=== PATIENT | female | born 2000 | race Two or more races ===

== ENCOUNTER 2024-03-30 18:33 | Emergency (ER) | payer OTHER, SELFPAY ==
[2024-03-30 19:36] VITALS: BP 117/82; PULSE 85; RESP 16; TEMP 37; O2SAT 98; BMI 29.6
--- NOTE | 2024-03-30 19:44 | XR_ITS ---
Examination: Complete OB ultrasound, less than 14 weeks, transabdominal Date and time of exam: March 30, 20242010 hrs. Indications: Pelvic cramping beginning one month ago Technique: Obstetrical ultrasound images less than 14 weeks performed via transabdominal imaging Findings: Uterus 7.8 cm no uterine mass or intrauterine gestation Endometrial stripe 0.4 cm Right ovary 3.0 cm arterial flow Left ovary 3.1 cm arterial flow Impression: Negative examination
--- NOTE | 2024-03-30 19:44 | PD.EDRME ---
Rapid Medical Screening Exam RME Arrival date/time: 03/30/24 18:33 23-year-old female no significant past medical history and approximately 2 months late in her menstrual cycle presents emergency department complaining of vaginal spotting and abdominal cramping. Chief Complaint: OB/Uterine Contractions Time Seen by Provider: 03/30/24 18:55 Vital signs: Vital Signs Temperature 98.6 F 03/30/24 19:36 Pulse Rate 85 03/30/24 19:36 Respiratory Rate 16 03/30/24 19:36 Blood Pressure 117/82 03/30/24 19:36 Pulse Oximetry (%) 98 03/30/24 19:36 Oxygen Delivery Method Room Air 03/30/24 19:36 Vital signs reviewed by provider: Yes
[2024-03-30 20:22] LABS: Collection Type, Urine Clean Catch
[2024-03-30 20:37] LABS: Basophils # (Auto) 0.1 Thou/mm3 (0.0-0.2); Basophils % (Auto) 1 % (0-2.5); Eosinophils # (Auto) 0.1 Thou/mm3 (0.0-0.5); Eosinophils % (Auto) 1 % (0-10); Hematocrit 40.9 % (36.0-46.0); Hemoglobin 13.9 g/dL (12.0-16.0); Immature Granulocytes % (Auto) 0 % (0-0); Immature Granulocytes Auto 0.03 Thou/mm3 (0.00-0.00); Lymphocytes # (Auto) 3.3 Thou/mm3 (1.0-4.8); Lymphocytes % (Auto) 34 % (10-50); Mean Corpuscular Hemoglobin 29.4 pg (25.0-35.0); Mean Corpuscular Volume 87 fL (80-100); Monocytes # (Auto) 0.7 Thou/mm3 (0.0-0.8); Monocytes % (Auto) 7 % (0-12); Neutrophils # (Auto) 5.7 Thou/mm3 (1.8-7.7); Neutrophils % (Auto) 58 % (37-80); Nucleated Red Blood Cell % 0 /100 WBC (0); Platelet Count 236 Thou/mm3 (140-440); RDW Standard Deviation 38.4 fL (36.4-46.3); Red Blood Count 4.72 Miln/mm3 (4.00-5.20); White Blood Count 9.8 Thou/mm3 (3.6-11.0)
[2024-03-30 20:41] LABS: Bilirubin,Urine Negative (Negative); Blood,Urine Negative (Negative); Clarity,Urine Clear (Clear/Hazy); Color,Urine Lt-Yellow (Lt Yel-Yel); Culture Indicated,Urine Not Indicated; Glucose, Urine Negative (Negative); Ketones,Urine Negative (Negative); Leukocyte Esterase,Urine Negative (Negative); Nitrite,Urine Negative (Negative); Protein,Urine Negative (Neg - Trace); RBC,Urine 1 /hpf (0-3); Specific Gravity,Urine 1.024 (1.001-1.035); Squamous Epithelial Cell,Urine 4 /hpf (0-5); Urobilinogen,Urine Negative mg/dL (0.0-1.0); WBC,Urine 1 /hpf (0-5)
[2024-03-30 20:49] LABS: Alanine Aminotransferase 176 U/L (10-49); Albumin, Serum 4.8 gm/dL (3.5-5.0); Albumin/Globulin Ratio 1.4 (1.2-2.2); Alkaline Phosphatase 110 U/L (46-116); Anion Gap 9 (7-16); Aspartate Amino Transferase 95 U/L (0-34); BUN/Creatinine Ratio 10 Ratio (12-20); Beta HCG,Quantitative < 1 mIU/mL (<5.0); Bilirubin,Total 0.4 mg/dL (0.3-1.2); Blood Urea Nitrogen 7 mg/dL (9-23); Calcium 10.1 mg/dL (8.3-10.6); Calcium (Corrected) 10.1 mg/dL (8.5-10.1); Carbon Dioxide 25.3 mMol/L (20.0-31.0); Chloride 105 mMol/L (98-107); Creatinine (Component) 0.7 mg/dL (0.6-1.3); Estimated Creatinine Clearance 132.3 mL/min (>60); Globulin 3.5 gm/dL (2.3-3.5); Glucose 82 mg/dL (74-106); Osmolality,Calculated 274 (275-295); Potassium 4.2 mMol/L (3.4-5.1); Sodium 139 mMol/L (136-145); Total Protein 8.3 gm/dL (5.7-8.2); eGFR > 60 See Note
[2024-03-30 21:19] VITALS: BP 122/85; PULSE 85; RESP 18; TEMP 37; O2SAT 98
--- NOTE | 2024-03-30 21:26 | EDNOTE_ITS ---
<Statement entered by Marisa Garcia MD - 03/31/24 05:26> As co-signing physician, I was present and available for consult prn. I concur with the plan and care as documented by the midlevel provider. ED Abdominal Pain RME/HPI General Chief Complaint: OB/Uterine Contractions Stated complaint: CHECK FOR ; TWO MONTHS LATE Time seen by provider: 03/30/24 18:55 Arrival date/time: 03/30/24 18:33 23-year-old female no significant past medical history and approximately 2 months late in her menstrual cycle presents emergency department complaining of vaginal spotting and abdominal cramping. Patient denies any fever, chills, vomiting, dysuria, or any other associated symptom. Patient does report was normally on control and stopped taking this controlled medication back in December. Source: patient Mode of arrival: ambulatory Limitations: no limitations RME / HPI RME / HPI narrative: 03/30/24 18:33 23-year-old female no significant past medical history and approximately 2 months late in her menstrual cycle presents emergency department complaining of vaginal spotting and abdominal cramping. Related Data Previous Rx's ?Medication ?Instructions ?Recorded pantoprazole 40 mg tablet,delayed 40 mg PO QDAY #20 ta bs 11/03/22 release (Protonix) Allergies Allergy/AdvReac Type Severity Reaction Status Date / Time latex Allergy Mild RASH Verified 03/30/24 18:35 Review of Systems Review of Systems Systems Reviewed: All systems reviewed, normal except as documented Constitutional Constitutional: Reports system reviewed and no additional complaints, except as documented, Denies body ache(s), Denies chills and Denies fever(s) Eyes Eyes: Reports system reviewed and no additional complaints, except as documented and Denies change in vision ENT Ears, Nose, Mouth, and Throat: Reports system reviewed and no additional complaints, except as documented, Denies disequilibrium, Denies dizziness, Denies sore throat and Denies vertigo Cardiovascular Cardiovascular: Reports system reviewed and no additional complaints, except as documented, Denies chest pain and Denies dyspnea Respiratory Respiratory: Reports system reviewed and no additional complaints, except as documented, Denies chest congestion, Denies cough and Denies dyspnea Gastrointestinal Gastrointestinal: Reports system reviewed and no additional complaints, except as documented, Reports abdominal pain, Denies nausea and Denies vomiting Genitourinary Genitourinary: Reports abnormal vaginal bleeding and Reports other (Amenorrhea) Musculoskeletal Musculoskeletal: Reports system reviewed and no additional complaints, except as documented, Denies abnormal gait and Denies arthralgias Integumentary/Breasts Skin/Breast: Reports system reviewed and no additional complaints, except as documented, Denies erythema, Denies rash and Denies wounds Neurologic Neurologic: Reports system reviewed and no additional complaints, except as documented, Denies abnormal gait, Denies disequilibrium, Denies dizziness and Denies vertigo Past Medical History Social History SMOKING STATUS: Never smoker ED Exam General Limitations: Present no limitations General appearance: Present alert and in no apparent distress Head Head exam: Present atraumatic Eye Eye exam: Present normal appearance, PERRL and EOMI ENT ENT exam: Present normal exam, normal oropharynx and mucous membranes moist Neck Neck exam: Present normal inspection, full ROM and trachea midline Chest Chest inspection: Present normal inspection and symmetric chest wall rise Respiratory Respiratory exam: Present normal lung sounds bilaterally Cardiovascular Cardiovascular exam: Present regular rate, normal rhythm and normal heart sounds Abdominal Exam Abdominal exam: Present soft and normal bowel sounds Extremities Exam Extremities exam: Present normal inspection and full ROM Back Exam Back exam: Present normal inspection and full ROM Neurological Exam Neurological exam: Present alert, oriented X3 and CN II-XII intact Psychiatric Psychiatric exam: Present normal affect and normal mood Skin Skin exam: Present warm, dry, intact and normal color Course Quality Measures none Orders Category Date Time Status US OB <= 14 weeks fetus Stat Exams 03/30/24 19:44 Completed ABO/RH Type Stat Lab 03/30/24 19:56 Completed Beta HCG,Quantitative Stat Lab 03/30/24 19:56 Completed CBC Stat Lab 03/30/24 19:56 Completed CMP [Comprehensive Metabolic Panel] Stat Lab 03/30/24 19:56 Completed Urinalysis, C/S if Indicated Stat Lab 03/30/24 20:00 Completed Vital Signs Vital signs: Vital Signs Temperature 98.6 F 03/30/24 19:36 Pulse Rate 85 03/30/24 19:36 Respiratory Rate 16 03/30/24 19:36 Blood Pressure 117/82 03/30/24 19:36 Pulse Oximetry (%) 98 03/30/24 19:36 Oxygen Delivery Method Room Air 03/30/24 19:36 98% room air within normal limits Abdominal Pain MDM MDM Narrative MDM Narrative:: 23-year-old female no significant past medical history and approximately 2 months late in her menstrual cycle presents emergency department complaining of vaginal spotting and abdominal cramping. Patient denies any fever, chills, vomiting, dysuria, or any other associated symptom. Patient does report was normally on control and stopped taking this controlled medication back in December. CBC was unremarkable for any leukocytosis or anemia. CMP was unremarkable other than mild elevated AST and ALT. Patient is abdomen is soft and nontender. Urinalysis was unremarkable. Ultrasound was also unremarkable. Patient appears nontoxic and is hemodynamically stable. Patient stable for discharge instructed to follow-up with primary care provider return to emergency department for any worsening symptoms or as needed. Patient data External records reviewed:: [facility] previous records Clinical information provided by:: patient Social determinants that could affect healthcare access:: none Patient has the following chronic illnesses:: None How is presenting disease/condition affected by chronic disease/condition?: no chronic disease Evaluation data The following diagnostics were reviewed and interpreted by me:: lab results and radiology exam(s) Lab and/or radiology exams considered but not ordered:: Ordered Interpretation Summary: Interpreted by me Medications / Prescriptions Medications or Prescriptions considered but not ordered:: N/A Medication administrations:: N/A Consultations Consultation(s) initiated? (list below): No Diagnosis Differential diagnosis abdominal pain: abdominal pain, acute appendicitis, calculus of kidney, constipation, diverticulitis, endometriosis, gastroenteritis, pancreatitis and small bowel obstruction Most likely diagnosis given after review of the tests above:: Abdominal pain Admission Indicated Admission indicated?: not indicated Admission Request Was there a request for admission?: No Disposition Plan Disposition Plan: Discharge Discharge Attestation Discharge Attestation: The patient and all family members were given an opportunity to ask questions and understood the discharge instructions. Discharge instructions specifically effects, indications for sooner follow up or return to the emergency department, and the expected course of current diagnosis. Patient condition: Stable Discharge Plan Plan Patient Disposition: HOME (Self Care) Disposition Comment: Stable Prescriptions/Referrals Prescriptions/Med Rec: No Action pantoprazole [Protonix] 40 mg tablet,delayed release (DR/EC) 40 mg PO QDAY Qty: 20 0RF Referrals: No Primary/Family,Physician [Primary Care Provider] - In 1 week Problem List Clinical Impression: Abdominal pain Patient/Caregiver Discharge Instructions Discharge Activity: activity as tolerated Education Materials: Abdominal Pain, ED Abdominal Pain Unkn Cause Fem Additional Instructions: Take Tylenol or ibuprofen as needed for pain. Including fluids and stay hydrated. Follow-up with primary care provider and request referral to express clerk as symptoms persist. Return to emergency department for any worsening symptoms or as needed. Print Language: Uruguayan Stand Alone Forms: [employer] Award Info., Patient Portal Info Letter PA/EXCAVATING SUPERVISOR Supervising Physician PA/EXCAVATING SUPERVISOR Supervising Physician: Dr. Garcia
== END 2024-03-30 21:31 | disposition home or self-care (01) ==
PROVIDERS: Emergency Provider Emergency Medicine
DX: R10.9 Unspecified abdominal pain (principal); R74.01 Elevation of levels of liver transaminase levels
CPT/HCPCS: 36415; 76801; 80053; 81001; 84702; 85025; 86900; 86901; 99284

== ENCOUNTER 2024-07-08 13:33 | Outpatient (AMB) | payer OTHER, SELFPAY ==
[2024-07-08 14:08] VITALS: BP 121/75; PULSE 81; RESP 18; TEMP 36.2; O2SAT 98; BMI 30.4
--- NOTE | 2024-07-08 14:08 | GYNCLNT_ITS ---
Vital Signs 07/08/24 14:08 Height 1.65 m Height Method Stated Weight 83.064 kg Weight Measurement Method Standing Scale BMI 30.4 BP 121/75 Blood Pressure Source Automatic Cuff Blood Pressure Location Left Upper Arm Position Sitting Respiration 18 Pulse 81 Pulse Source Monitor Temp 97.2 F Temp Source Oral Pulse Oximetry (%) 98 Oxygen Delivery Method Room Air Allergies/Home Meds Allergies & Medications Allergies latex Allergy (Mild, Verified 07/08/24 14:09) RASH Medication Reconciliation pantoprazole 40 mg tablet,delayed release (Protonix) 40 mg PO QDAY #20 tabs 11/03/22 [Rx Confirmed 07/08/24] drospirenone 3 mg-ethinyl estradiol 0.02 mg tablet (NEGRO (28)) 1 tab PO QDAY 84 days #84 tabs 07/08/24 [Rx] metformin 500 mg tablet 500 mg PO QDAY 90 days #90 tabs 07/08/24 [Rx] Intake Visit Data Collection New Patient or Established: Established Patient (seen at [facility] within 3 years) Reason for Visit:: PCOS Seen by Clinical Staff ONLY (RN/MA): No Systems Software Designer Required: No Do You Feel Safe at Home: Yes Authorities Contacted: N/A PCP or OBGYN visit in last 3 months: Yes Hx Now: No Are you currently on any form of Control: No Last menstrual period: 01/29/24 Pain Present Currently: No Pain Scale Used: Alcantara-Vargas/Numerical Pain scale:: 0 Smoking Status Smoking Status: Never smoker Hospital Secretary history Hospital Secretary History Menstrual regularity: irregular Flow: light Monthly: No How many days does period last: 5 Age at menarche: 13 Menopausal: No Currently sexually active: No Questionnaires Covid-19 Vaccine Questionnaire Has patient been vacinated for Covid-19 Have you been vacinated for Covid-19: Yes PHQ-9 PHQ-2 Over the last 2 weeks, how often have you been bothered by any of the following problems? 1. Little interest or pleasure in doing things: not at all 2. Feeling down, depressed, or hopeless: not at all Total score: 0 PHQ-9 3. Trouble falling or staying asleep, or sleeping too much: Not at all 4. Feeling tired or having little energy: Not at all 5. Poor appetite or overeating: Not at all 6. Feeling bad about yourself - or that you are a failure or have let yourself or your family down: Not at all 7. Trouble concentrating on things, such as reading the newspaper or watching television: Not at all 8. Moving or speaking so slowly that other people could have noticed? - Or the opposite - being so fidgety or restless that you have been moving around a lot more than usual: not at all 9. Thoughts that you would be better off or of hurting yourself in some way: Not at all Total score: 0 If you checked off any problems, how difficult have these problems made it for you to do your work, take care of things at home, or get along with other people?: not difficult at all Source: Developed by Drs. Umang Martin, Sarah Stevens, Santos Tadeo and colleagues, with an educational virginia from [employer]. Depression screen completed yes Social History Living Situation History Marital Status: Single Lives With: Family Housing: House Tobacco History Smoking Status: Never smoker Second Hand Smoke Exposure: No Alcohol History Alcohol Intake: Never Domestic Abuse History Do You Feel Safe at Home: Yes History of Present Illness HPI Narrative Elaina Desir, a 24-year-old female, presents for evaluation of polycystic ovary syndrome (PCOS). She was recently diagnosed with PCOS by [facility] from [facility] a couple of weeks ago. Elaina reports that she has not had her period since last year, indicating irregular menstrual cycles. She mentions that her prolactin hormone level was found to be high during recent lab tests, although the exact value was not specified at that time. Elaina was advised to get more labs done to investigate this further, but she has not followed up on this recommendation yet. Prior to her PCOS diagnosis, Elaina visited the emergency room for a test when she experienced some bleeding. However, no ultrasound was performed during that visit. Elaina has recently made dietary changes in response to her diagnosis. She reports using a food tracking xi and measuring her food intake in grams using a food scale. Her mother mentions that Elaina has lost 10 pounds since implementing these dietary modifications. Elaina also notes feeling better with these changes, pa rticularly in terms of reduced bloating and fluid retention. The patient is currently taking Metformin 500 mg by mouth once daily. ROS: Endocrine: Positive for irregular menstrual periods, amenorrhea. Skin: Positive for male pattern hair growth. Diagnostic Test Results and Labs: - Laboratory Results (05/26/2024): Testosterone total: 81 (elevated) Free testosterone: 13 (elevated) FSH: 9 Prolactin: 30.7 (marginally high) 17-hydroxyprogesterone: 65 DHEA: 68 SHB Estradiol: 47 AMH: 6 Review of Systems Review of Systems Systems Reviewed: All systems reviewed, normal except as documented Exam General General Appearance: alert, in no apparent distress and healthy appearing Head Head exam: atraumatic Neck Neck exam: Present normal inspection and trachea midline Chest Chest inspection: Present normal inspection and symmetric chest wall rise External exam: Present normal external exam; Absent tenderness Neuro Neurological exam: Present oriented X3 Psych Psychiatric exam: Present normal affect and normal mood Office Procedures OB Clinic LOC & Office Proc's Nursing/Assessment Patient Status: Established Patient OB Clinic Nursing Assessment: Medication Reconciliation, Update PMH in EMR and Vital Signs OB Clinic Coordination of Care: Education Complex Pt/Fam, Consent,records obtained, informed consent, Lab and Imaging orders, Results/Orders obtained and Staff clarify orders Established Patient Charge Established Patient Point Assignment: 85 Established Patient Point Charge: EP Level 3 (80-115) Assessment & Plan Diagnosis / Problem List (1) Metabolic syndrome: Status: Acute (2) PCOS (polycystic ovarian syndrome): Status: Acute Plan Polycystic Ovary Syndrome (PCOS): - Irregular menstrual cycles and absence of periods for the past year. - Elevated total testosterone (81) and free testosterone (13). - Marginally elevated prolactin (30.7), likely secondary to testosterone elevation. - Meets two of three [place] criteria for PCOS diagnosis. - Ultrasound pending to potentially confirm ovarian cysts. - Recent weight loss of 10 pounds. Plan: - Initiate metformin 500 mg PO daily for metabolic symptom management and weight control. - Start low-dose oral contraceptive pills for hormonal regulation. - Patient to track menstrual cycles using an xi or calendar. - Recommend adherence to PCOS diet (similar to keto diet with controlled fat intake). - Continue current weight loss efforts. - Recheck labs in 3 months. - Follow-up appointment in 3 months to reassess symptoms and lab results. Treatment Options for PCOS: Medication: - Metformin for metabolic symptom management. - Oral contraceptive pills for hormonal regulation. Lifestyle Changes: - PCOS-specific diet (similar to keto diet with controlled fat intake). - Continued weight loss efforts. Monitoring: - Track menstrual cycles. - Regular lab tests and follow-up appointments. Note: No specific surgical options or alternatives were mentioned in the original text, so these sections are not included in the reformatted version.
== END 2024-07-08 14:31 | disposition home or self-care (01) ==
LOC: HODSOBC 13:33
PROVIDERS: Supervising Provider Obstetrics & Gynecology; Visit Provider Obstetrics & Gynecology
DX: E28.2 Polycystic ovarian syndrome (principal); E88.810 Metabolic syndrome
CPT/HCPCS: 99213; G0463

== ENCOUNTER 2024-12-01 09:53 | Outpatient (AMB) | payer OTHER, SELFPAY ==
[2024-12-01 10:26] VITALS: BP 126/84; PULSE 91; RESP 18; TEMP 36.9; O2SAT 97; BMI 28.6
--- NOTE | 2024-12-01 10:26 | GYNCLNT_ITS ---
Vital Signs 12/01/24 10:26 Height 1.65 m Height Method Stated Weight 78.075 kg Weight Measurement Method Standing Scale BMI 28.6 BP 126/84 Blood Pressure Source Automatic Cuff Blood Pressure Location Left Upper Arm Position Sitting Respiration 18 Pulse 91 Pulse Source Monitor Temp 98.5 F Temp Source Oral Pulse Oximetry (%) 97 Oxygen Delivery Method Room Air Allergies/Home Meds Allergies & Medications Allergies latex Allergy (Mild, Verified 12/01/24 10:42) RASH Medication Reconciliation pantoprazole 40 mg tablet,delayed release (Protonix) 40 mg PO QDAY #20 tabs 11/03/22 [Rx Confirmed 12/01/24] drospirenone 3 mg-ethinyl estradiol 0.02 mg tablet (NEGRO (28)) 1 tab PO QDAY 84 days #84 tabs 07/08/24 [Rx Confirmed 12/01/24] metformin 500 mg tablet 500 mg PO QDAY 90 days #90 tabs 07/08/24 [Rx Confirmed 12/01/24] Intake Visit Data Collection New Patient or Established: Established Patient (seen at [facility] within 3 years) Reason for Visit:: PCOS FOLLOW UP Seen by Clinical Staff ONLY (RN/MA): No Sand Cutter Required: No Do You Feel Safe at Home: Yes Authorities Contacted: N/A PCP or OBGYN visit in last 3 months: Yes Hx Now: Yes Are you currently on any form of Control: No Last menstrual period: 10/30/24 Pain Present Currently: No Pain Scale Used: Alcantara-Vargas/Numerical Pain scale:: 0 Smoking Status Smoking Status: Never smoker Immunizations Flu Vaccine in the Last 12 Months: Yes Flu Vaccine Exclusion Criteria: Already Received Float Tender history Float Tender History Menstrual regularity: irregular Flow: heavy Monthly: No How many days does period last: 7 Age at menarche: 14 Currently sexually active: Yes Questionnaires Covid-19 Vaccine Questionnaire Has patient been vacinated for Covid-19 Have you been vacinated for Covid-19: Yes PHQ-9 PHQ-2 Over the last 2 weeks, how often have you been bothered by any of the following problems? 1. Little interest or pleasure in doing things: not at all 2. Feeling down, depressed, or hopeless: not at all Total score: 0 PHQ-9 3. Trouble falling or staying asleep, or sleeping too much: Not at all 4. Feeling tired or having little energy: Not at all 5. Poor appetite or overeating: Not at all 6. Feeling bad about yourself - or that you are a failure or have let yourself or your family down: Not at all 7. Trouble concentrating on things, such as reading the newspaper or watching television: Not at all 8. Moving or speaking so slowly that other people could have noticed? - Or the opposite - being so fidgety or restless that you have been moving around a lot more than usual: not at all 9. Thoughts that you would be better off or of hurting yourself in some way: Not at all Total score: 0 Source: Developed by Drs. Umang Martin, Sarah Stevens, Santos Tadeo and colleagues, with an educational virginia from [employer]. Depression screen completed yes Social History Living Situation History Lives With: Family Housing: House Tobacco History Smoking Status: Never smoker Second Hand Smoke Exposure: No Alcohol History Alcohol Intake: Never Domestic Abuse History Do You Feel Safe at Home: Yes History of Present Illness HPI Narrative Elaina Desir returns for follow-up of PCOS management and is currently taking metformin with some improvement in her menstrual cycles. She reports experiencing insomnia as a potential side effect, stating I have not been able to sleep. She takes her metformin before going to work around 2 in the morning. The patient continues on control and expresses concern about potential acne breakouts when discontinuing treatment, noting when you stop, it breaks out. She remains adherent to her metformin therapy and reports that her cycles are a little better since starting treatment. Her last laboratory work was completed in May, with DHEA and testosterone levels noted to be slightly elevated at that time. The patient has been taking metformin before going to work around 2 in the morning, which may cause insomnia. She continues on control, as discontinuation causes breakouts. She works with a schedule requiring departure around 2 AM and consumes caffeine, though she has been advised to avoid caffeine after 3-4 PM due to sleep issues. ROS: Psychiatric: Positive for insomnia. Negative except as stated above, limited to LAWN SERVICE MANAGER and pertinent complaints. Exam General General Appearance: alert, in no apparent distress and healthy appearing Head Head exam: atraumatic Neck Neck exam: Present normal inspection and trachea midline Chest Chest inspection: Present normal inspection and symmetric chest wall rise External exam: Present normal external exam; Absent tenderness Neuro Neurological exam: Present oriented X3 Psych Psychiatric exam: Present normal affect and normal mood Office Procedures OBC Clinic LOC & Office Proc's Nursing/Assessment Patient Status: Established Patient OB Clinic Nursing Assessment: Medication Reconciliation, Update PMH in EMR and Vital Signs OB Clinic Coordination of Care: Complex Care and Chronic Disease 1-5, Consent,records obtained, informed consent, Education Simp Pt/Fam, 1 Ins Authorization, Lab and Imaging orders, Results/Orders obtained and Staff clarify orders Established Patient Charge Established Patient Point Assignment: 120 Established Patient Point Charge: EP Level 4 (120-155) Assessment & Plan Diagnosis / Problem List (1) PCOS (polycystic ovarian syndrome): Status: Acute (2) Metabolic syndrome: Status: Acute Plan PCOS on Metformin Therapy: - Patient currently on metformin for PCOS management with improved menstrual cycles. - Previous lab work from May showed slightly elevated DHEA and testosterone levels. - Patient reports insomnia which may be related to metformin timing as she takes it at 2 AM before work. - Emphasized importance of continuing metformin for 1-2 years before considering discontinuation to avoid withdrawal effects and rebound symptoms. Plan: - Continue metformin, adjust timing to morning with first meal within one hour of waking. - Avoid caffeine after 3-4 PM to improve sleep. - Consider magnesium before bedtime to help with muscle relaxation and sleep. - Repeat lab work for DHEA and testosterone levels. - Labs to be done on empty stomach. - Schedule telehealth visit in 3 weeks to review lab results. - When ready to discontinue metformin, transition to minipill first then taper off gradually rather than stopping suddenly. Acne: - Patient experiencing acne likely related to PCOS and hormonal imbalances. - Acne may worsen if hormonal medications are stopped abruptly. Plan: - Offer topical acne medication. - Advised against sudden discontinuation of current medications to prevent acne flare-ups.
== END 2024-12-01 11:02 | disposition home or self-care (01) ==
LOC: HODSOBC 09:53
PROVIDERS: Supervising Provider Obstetrics & Gynecology; Visit Provider Obstetrics & Gynecology
DX: E28.2 Polycystic ovarian syndrome (principal); E88.810 Metabolic syndrome
CPT/HCPCS: 99214; G0463

== ENCOUNTER 2024-12-23 08:44 | Outpatient (AMB) | payer OTHER, SELFPAY ==
--- NOTE | 2024-12-23 08:48 | GYNCLNT_ITS ---
Allergies/Home Meds Allergies & Medications Allergies latex Allergy (Mild, Verified 12/23/24 08:49) RASH Medication Reconciliation drospirenone 3 mg-ethinyl estradiol 0.02 mg tablet (NEGRO (28)) 1 tab PO QDAY 84 days #84 tabs 07/08/24 [Rx Confirmed 12/23/24] metformin 500 mg tablet 500 mg PO QDAY 90 days #90 tabs 07/08/24 [Rx Confirmed 12/23/24] Intake Visit Data Collection New Patient or Established: Established Patient (seen at [facility] within 3 years) Reason for Visit:: DISCUSS LAB RESULTS Consent obtained for Telemed Visit: Yes Seen by Clinical Staff ONLY (RN/MA): No Director Of Business Applications Required: No Do You Feel Safe at Home: Yes Authorities Contacted: N/A PCP or OBGYN visit in last 3 months: Yes Hx Now: No Are you currently on any form of Control: Yes Last menstrual period: 12/02/24 Pain Present Currently: No Pain Scale Used: [place]cantara-Vargas/Numerical Pain scale:: 0 Smoking Status Smoking Status: Never smoker Immunizations Flu Vaccine in the Last 12 Months: No Flu Vaccine Exclusion Criteria: Refused by Patient For Telemed visit only Telemed Video/Phone Visit: Yes Verbal consent obtained for Telemed visit?: Yes Cardiac Rn history Cardiac Rn History Menstrual regularity: regular Flow: normal Monthly: Yes How many days does period last: 7 Age at menarche: 14 Currently sexually active: Yes Questionnaires Covid-19 Vaccine Questionnaire Has patient been vacinated for Covid-19 Have you been vacinated for Covid-19: Yes PHQ-9 PHQ-2 Over the last 2 weeks, how often have you been bothered by any of the following problems? 1. Little interest or pleasure in doing things: not at all 2. Feeling down, depressed, or hopeless: not at all Total score: 0 PHQ-9 3. Trouble falling or staying asleep, or sleeping too much: Not at all 4. Feeling tired or having little energy: Not at all 5. Poor appetite or overeating: Not at all 6. Feeling bad about yourself - or that you are a failure or have let yourself or your family down: Not at all 7. Trouble concentrating on things, such as reading the newspaper or watching television: Not at all 8. Moving or speaking so slowly that other people could have noticed? - Or the opposite - being so fidgety or restless that you have been moving around a lot more than usual: not at all 9. Thoughts that you would be better off or of hurting yourself in some way: Not at all Total score: 0 Source: Developed by Drs. Umang Martin, Sarah Stevens, Santos Tadeo and colleagues, with an educational [place] from [employer]. Depression screen completed yes Social History Living Situation History Lives With: Family Housing: House Tobacco History Smoking Status: Never smoker Second Hand Smoke Exposure: No Alcohol History Alcohol Intake: Never Domestic Abuse History Do You Feel Safe at Home: Yes History of Present Illness HPI Narrative Elaina Desir presents for follow-up visit regarding her current treatment regimen. The patient reports doing well overall. She appears to be adherent to her prescribed medication regimen and has not discontinued any treatments. No new symptoms, concerns, or changes in her health status were reported during this visit. ROS: Negative except as stated above, limited to [employer] and pertinent complaints. Diagnostic Test Results and Labs: - DHEA: 114 (within normal range) - Testosterone: 0.5 (within normal range) Exam Narrative Physical exam: No pE due to televisit Office Procedures [facility] LOC & Office Proc's Nursing/Assessment Patient Status: Established Patient OB Clinic Nursing Assessment: Medication Reconciliation and Update PMH in EMR OB Clinic Coordination of Care: Complex Care and Chronic Disease 1-5, Consent,records obtained, informed consent, Education Simp Pt/Fam, Results/Orders obtained and Staff clarify orders Established Patient Charge Established Patient Point Assignment: 75 Telehealth If patient is seen using Teleconference methods, complete New/Est section, but DO NOT tray points only tray the correct Telemed visit type Telemed Phone/Video with patient at home & Dr,PA,RESIDENT INSPECTOR: Yes Assessment & Plan Diagnosis / Problem List (1) PCOS (polycystic ovarian syndrome): Status: Acute (2) Metabolic syndrome: Status: Acute Plan Hyperandrogenism: - Patient responding well to current treatment regimen. - Recent laboratory results demonstrate significant improvement with DHEA level of 114 and testosterone level of 0.5, both now within middle of normal range. - Values represent substantial decrease from previous levels, indicating effective therapeutic response. Plan: - Continue current medication regimen without changes. - Follow-up appointment scheduled in 6 months. - Patient instructed to contact clinic when medication refills are needed.
== END 2024-12-23 09:22 | disposition home or self-care (01) ==
LOC: HODSOBC 08:44
PROVIDERS: Supervising Provider Obstetrics & Gynecology; Visit Provider Obstetrics & Gynecology
DX: E28.2 Polycystic ovarian syndrome (principal); E88.810 Metabolic syndrome; Z91.040 Latex allergy status
CPT/HCPCS: 99212; G0463